=== PATIENT | male | born 1970 | race Caucasian/White ===

== ENCOUNTER 2018-02-09 07:34 | Day surgery (SDC) | payer BC ==
[~2018-02-09 07:34] MED LIST: Buffered Lidocaine 0.9% SYRIN* 5 ML/SYR SYRINGE INTRADERM ONE; Sodium Citrate/Citric Acid* 15 ML UDC PO ONE
[2018-02-09] MEDS ORDERED: Sodium Citrate/Citric Acid* 15 ML UDC ONE (07:47)
[2018-02-09] MEDS ORDERED: ceFAZolin 2 GM in NS PREMIX(*) 2 GM/100 ML BAG IVPB ONE (07:48)
[2018-02-09] MEDS ORDERED: Bupivacaine 0.5% SDV PF* 30ML VIAL ONE (09:10)
[2018-02-09] MEDS ORDERED: fentaNYL* 50 MCG/ML 2 ML VIAL (100 MCG VIAL) ONE ×3 (09:17→11:20)
[2018-02-09] MEDS ORDERED: Propofol* 10 MG/ML 20 ML BTL IV PUSH ONE (09:18)
[2018-02-09] MEDS ORDERED: Lidocaine 2% PF * 5 ML VIAL ONE (09:18)
[2018-02-09] MEDS ORDERED: KETAMINE HCL* 50 MG/ML 10 ML VIAL ONE (09:23)
[2018-02-09] MEDS ORDERED: Dexamethasone IV* 4 MG/ML 1 ML (4 MG) ONE (09:26)
[2018-02-09] MEDS ORDERED: Ketorolac INJ* 30 MG/ML 1 ML VIAL ONE (09:45)
[2018-02-09] MEDS ORDERED: Gelfoam 12-7 ADSORBABL SPONGE* 1 EA SPONGE ONE (09:52)
[2018-02-09] MEDS ORDERED: Naloxone* 0.4 MG/ML 1 ML VIAL IV PRN (10:18)
[2018-02-09] MEDS ORDERED: Ondansetron INJ* 2 MG/ML VIAL IV PRN (10:18)
[2018-02-09] MEDS: fentaNYL* 50 MCG/ML 2 ML VIAL (100 MCG VIAL) IV PRN ×3 (11:12→11:24)
[2018-02-09] MEDS ORDERED: oxyCODONE TAB* 5 MG TAB ONE (11:29)
[2018-02-09 12:18] VITALS: BP 143/77
--- NOTE | 2018-02-10 02:16 | OP ---
DATE OF OPERATION: 02/09/18 - [facility] DATE OF : 74. ATTENDING SURGEON: Richardson Phelps M.D. [facility] SPECIALIST: Nicole Caban PA-C PRE-OP DIAGNOSIS: Left tibiotalar arthrosis. POST-OP DIAGNOSIS: Left tibiotalar arthrosis with multiple loose bodies subfibular area and a large peroneal tubercle. OPERATIVE PROCEDURE: Left tibiotalar fusion with debridement of lateral bone fragments and excision of the peroneal tubercle. DESCRIPTION OF PROCEDURE: The patient was taken to the operating room where a longitudinal lateral incision was made over the distal fibula. It was raised in an anterior full thickness flap to allow visualization of the tibiotalar joint. A laminar spur was placed into the joint and then we prepared the joint for arthrodesis using a 5-mm power bur. We harvested cancellous bone from the distal fibula through a lateral corticotomy in places along the tibiotalar joint. We removed a little bit more above on the lateral shoulder, the talus to help to correct some of the varus deformity. Fixation consisted of 3 different 6.7 mm cannulated screws of the Arthrex set. Good compression and alignment was obtained. The patient had a very large lateral peroneal tubercle, which was removed as well under direct vision with a curved osteotome. This decompressed the peroneus longus tendon, which appeared to be entraped in this very large prominent tubercle. X- rays intraoperatively showed satisfactory position. So, we irrigated thoroughly closing with 2-0 Vicryl sutures, burke for the skin, and a compression dressing plaster splint. [id number]/[facility] #: [id number] [facility] HEALTHBhar[facility]
--- NOTE | 2018-02-10 06:54 | RAD ---
INDICATION: Left ankle fusion. COMPARISON: Correlation is made with a prior study from November 12, 2017. TECHNIQUE: 10 seconds of intermittent fluoroscopic guidance were provided and 4 spot films of the left ankle were obtained in the operating room. FINDINGS: The films demonstrate placement of 3 surgical screws spanning the tibiotalar joint. There is a surgical defect in the lateral aspect of the distal fibula. IMPRESSION: INTRAOPERATIVE CONTROL FILMS. CPT II Codes: G9500
== END 2018-02-09 12:34 | disposition home or self-care (01) ==
LOC: OR 07:34
PROVIDERS: ATTEND Orthopaedic Surgery
DX: M19.072 Primary osteoarthritis, left ankle and foot (principal); M24.072 Loose body in left ankle
CPT/HCPCS: 76000; A9270-GY; C1713; J0690; J1100; J1885; J2704; J3010